=== PATIENT | female | born 1980 | race Two or more races ===

== ENCOUNTER 2017-10-08 20:27 | Emergency (ER) | payer OTHER ==
[~2017-10-08] VITALS: Ht 154.9 cm; Wt 59.4 kg
[~2017-10-08 20:27] MED LIST: COLACE100 MG PO; FERROUS SU325 ( 65 ) PO; MYLICON 125MG125 MG PO; OXYC1TAB9 PO; PREPLUS CA-FE1 EACH PO
== END 2017-10-09 03:48 | disposition home or self-care (01) ==
LOC: ER 20:27
DX: O20.0 Threatened abortion (principal); Z34.81 Encounter for supervision of other normal pregnancy, first trimester

== ENCOUNTER 2018-02-27 16:50 | Outpatient (CLI) | payer OTHER | END 2018-02-27 18:00 | disposition home or self-care (01) | LOC: NST 16:50 | DX: Z34.83 Encounter for supervision of other normal pregnancy, third trimester (principal) ==

== ENCOUNTER 2018-03-24 15:43 | Outpatient (CLI) | payer OTHER | END 2018-03-24 17:33 | disposition home or self-care (01) | LOC: NST 15:43 | DX: Z34.83 Encounter for supervision of other normal pregnancy, third trimester (principal) ==

== ENCOUNTER 2018-04-02 16:13 | Outpatient (CLI) | payer OTHER | END 2018-04-02 17:00 | disposition home or self-care (01) | LOC: NST 16:13 | DX: Z34.83 Encounter for supervision of other normal pregnancy, third trimester (principal) ==

== ENCOUNTER 2018-04-15 11:47 | Outpatient (CLI) | payer OTHER | END 2018-04-15 12:29 | disposition home or self-care (01) | LOC: NST 11:47 | DX: Z34.83 Encounter for supervision of other normal pregnancy, third trimester (principal) ==

== ENCOUNTER 2018-04-23 16:20 | Outpatient (CLI) | payer OTHER | END 2018-04-23 17:27 | disposition home or self-care (01) | LOC: NST 16:20 | DX: Z34.83 Encounter for supervision of other normal pregnancy, third trimester (principal) ==

== ENCOUNTER 2018-04-28 17:12 | Inpatient (IN) | payer OTHER ==
[~2018-04-28] VITALS: Ht 154.9 cm; Wt 2.7 kg
[2018-04-29] MEDS ORDERED: PRENATABS RX T1 EACH PO (08:57)
[2018-05-06] MEDS ORDERED: IRON 100 PLUS1 EACH PO (09:01)
== END 2018-05-09 13:12 | DRG 784 ==
LOC: O/R 05-06 08:10 → OB/GYN 05-06 08:10
PROVIDERS: ADMIT Obstetrics & Gynecology
PROC: 0UB70ZZ Excision of Bilateral Fallopian Tubes, Open Approach (ICD-10-PCS; 2018-05-06)
PROC: 4A1HXCZ Monitoring of Products of Conception, Cardiac Rate, External Approach (ICD-10-PCS; 2018-05-06)
PROC: 10D00Z1 Extraction of Products of Conception, Low, Open Approach (ICD-10-PCS; principal; 2018-05-06 08:15)
PROC: 30233N1 Transfusion of Nonautologous Red Blood Cells into Peripheral Vein, Percutaneous Approach (ICD-10-PCS; 2018-05-08)
DX: O34.211 Maternal care for low transverse scar from previous cesarean delivery (principal); D62 Acute posthemorrhagic anemia; O75.82 Onset (spontaneous) of labor after 37 completed weeks of gestation but before 39 completed weeks gestation, with delivery by (planned) cesarean section; O99.02 Anemia complicating childbirth; Z3A.37 37 weeks gestation of pregnancy; Z30.2 Encounter for sterilization; Z37.0 Single live birth

== ENCOUNTER 2018-05-04 11:51 | Outpatient (CLI) | payer OTHER ==
[~2018-05-04 11:51] MED LIST changes: +PRENATABS RX T1 EACH PO
== END 2018-05-04 12:36 | disposition home or self-care (01) ==
LOC: NST 11:51
DX: Z34.83 Encounter for supervision of other normal pregnancy, third trimester (principal)